=== PATIENT | female | born 1985 | race Two or more races ===

== ENCOUNTER 2018-06-03 17:02 | Emergency (ER) | payer OTHER ==
[~2018-06-03] VITALS: Ht 160 cm; Wt 74.8 kg
[2018-06-03 17:17] VITALS: BP 125/72
[2018-06-03] MEDS ORDERED: ACETAMINOPHEN 500 MG TAB PO ONE (19:30)
[2018-06-03] MEDS ORDERED: IBUPROFEN 800 MG TAB PO ONE (19:30)
== END 2018-06-03 21:20 | disposition home or self-care (01) ==
LOC: ER 17:02
DX: S69.92XA Unspecified injury of left wrist, hand and finger(s), initial encounter (principal); W22.8XXA Striking against or struck by other objects, initial encounter; Y93.89 Activity, other specified; Y99.8 Other external cause status; Y92.89 Other specified places as the place of occurrence of the external cause
CPT/HCPCS: 29125; 73130; 81025